=== PATIENT | male | born 1990 | race Hispanic/Latino ===

== ENCOUNTER 2021-10-03 11:03 | Emergency (ER) | payer OTHER ==
[~2021-10-03] VITALS: Ht 172.7 cm; Wt 98.0 kg
[2021-10-03 11:13] VITALS: BP 116/74
[2021-10-03 11:31] VITALS: BP 125/68
[2021-10-03] MEDS ORDERED: BACTRIM DS1 TAB PO (11:47)
== END 2021-10-03 11:58 | disposition home or self-care (01) | DRG 603 ==
LOC: ED 11:03
PROC: 0H9CXZZ Drainage of Left Upper Arm Skin, External Approach (ICD-10-PCS; principal; 2021-10-03)
DX: L02.412 Cutaneous abscess of left axilla (principal); L73.2 Hidradenitis suppurativa